=== PATIENT | female | born 1970 | race Caucasian/White ===

== ENCOUNTER 2017-01-10 13:11 | Emergency (ER) | payer BC ==
[~2017-01-10] VITALS: Ht 165.1 cm; Wt 63.5 kg
--- NOTE | 2017-01-10 13:40 | Emergency Room Report ---
History of Present Illness General Chief Complaint: General Complaint Source: Patient, EMS Present Illness HPI 46-year-old female complains of possible panic attack one hour ago. Patient states that she was having lunch with her family when she felt this aura about her, her eyes began to, she fell nervous, patient then states that she had a sensation of panic, and then she started feeling that her heart was racing. Patient states that she had similar symptoms 3 weeks ago and went to the hospital where she had a full cardiac workup which was negative. Patient states that she is under the care of a garbage truck helper after following up from that ER visit and has a pending stress test and echo. Patient states that she had performed a one-week cough or monitor as well with garbage truck helper already. Patient states she is currently asymptomatic and that her symptoms have resolved before the paramedics arrived. Patient is adopted and has unknown family history. Patient denies any comorbid conditions and denies any hx of cardiac or psych. Denies any current n/v/f/c/d, SI, HI, AH, VH, depression, abd pain, back pain, neck pain, photophobia, phonophobia, CP, SOB or headache. Allergies: Coded Allergies: No Known Allergies (Unverified , 01/10/17) Patient History Past Medical History: see triage record Past Surgical History: none Pertinent Family History: none Last Menstrual Period: 12/27/16 Now: No : 3 Para: 1 Reviewed Nursing Documentation: PMH: Agreed, PSxH: Agreed Nursing Documentation-PMH Past Medical History: No Stated History Review of Systems All Other Systems: negative except mentioned in HPI Physical Exam Vital Signs Date Time Temp Pulse Resp B/P (MAP) Pulse Ox O2 Delivery O2 Flow Rate FiO2 01/10/17 13:11 98.2 94 18 136/94 100 Room Air Sp02 EP Interpretation: reviewed, normal General Appearance: no apparent distress, alert, GCS 15, non-toxic, other - anxious Head: normocephalic, atraumatic Eyes: bilateral eye normal inspection, bilateral eye PERRL ENT: hearing grossly normal, normal pharynx, no angioedema, normal voice Neck: full range of motion, supple/symm/no masses Respiratory: chest non-tender, lungs clear, normal breath sounds, speaking full sentences Cardiovascular #1: normal peripheral pulses, regular rate, rhythm, no edema, no gallop Gastrointestinal: normal inspection Musculoskeletal: gait/station normal Neurologic: alert, oriented x3, responsive, motor strength/tone normal, sensory intact, speech normal Psychiatric: judgement/insight normal, memory normal, mood/affect normal, no suicidal/homicidal ideation Skin: normal color, no rash, warm/dry, well hydrated Medical Decision Making PA Attestation Dr. Maxwell is my supervising physician with whom patient management has been discussed with. Diagnostic Impression: Primary Impression: Panic attack ER Course Pt. presents to the ED c/o panic attack Ddx considered but are not limited to depression, anxiety, panic attack, drug use, heart attack, PE, asthma, URI Vital signs: are WNL, pt. is afebrile H&PE are most consistent with panic attack ORDERS: none required at this time, the diagnosis is clinical ED INTERVENTIONS: Ativan 0.5mg DISCHARGE: At this time pt. is stable for d/c to home. Patient does not think she is having a heart attack and states it sounds like a panic attack. Patient is asymptomatic and reports she exercises regularly in the gym and has no MURRELL. Physical exam is benign. Will provide printed patient care instructions, and any necessary prescriptions. Care plan and follow up instructions have been discussed with the patient prior to discharge. Last Vital Signs Date Time Temp Pulse Resp B/P (MAP) Pulse Ox O2 Delivery O2 Flow Rate FiO2 01/10/17 14:32 98.2 96 18 132/95 100 Room Air Status: unchanged Disposition: HOME, SELF-CARE Condition: Stable Scripts Lorazepam* (ATIVAN*) 0.5 Mg Tablet 0.5 MG ORAL DAILY for 10 Days, #10 TAB Prov: CATHY NUNEZ P.Aram 01/10/17 Patient Instructions: Panic Attacks Additional Instructions: Take medication as directed. Patient advised to follow up with PCP and garbage truck helper on Thursday. Adverse reactions discussed with patient. Educated patient on anxiety / depression. Advised patient to remain active and to at least have 2.5 hours of scheduled walking a week or any other exercise related activity. Patient informed to call a nurse or doctor, call for an ambulance or go to the ER immediately if they feel like they want to hurt or kill themselves or other people. Patient informed of national suicide prevention lifeline on the back of their insurance card and to use that if any emotional compromise is encountered. Advised patient to go to the ER if they experiences any CP or Palpitations that are new or severe, happens along with shortness of breath, lasts more than a few minutes, scares or worries you, or if CP gets worse when you: walk, climb stairs, or do other types of physical activity. CATHY NUNEZ Jan 10, 2017 13:40
[2017-01-10] MEDS ORDERED: LORazepam 0.5mg tab ORAL ONE (13:45)
[2017-01-10 14:32] VITALS: BP 132/95
[2017-01-10] MEDS ORDERED: ATIVAN0.5 MG ORAL (14:49)
== END 2017-01-10 14:47 | disposition home or self-care (01) ==
LOC: EDBD 13:11 → EMR 13:40
DX: F41.0 Panic disorder [episodic paroxysmal anxiety] (principal)
CPT/HCPCS: 99283